=== PATIENT | male | born 1955 | race Caucasian/White ===

== ENCOUNTER 2020-04-03 08:20 | Emergency (ER) | payer OTHER ==
[~2020-04-03] VITALS: Ht 179.1 cm; Wt 71.0 kg
[2020-04-03 08:32] VITALS: BP 130/94
--- NOTE | 2020-04-03 08:39 | NUR ---
PATIENT AMBULATED TO BED 12.
--- NOTE | 2020-04-03 08:55 | NUR ---
C/O OF LOWER BACK PRESSURE PAIN 8/10 X5 DAYS. RASH TO LEFT FLANK, DOES NOT CROSS MIDDLE OF BACK. SKIN WARM, DRY AND INTACT. BED IN LOWEST POSITION, SIDE RAIL UP X1.
[2020-04-03 09:17] VITALS: BP 130/94
--- NOTE | 2020-04-03 09:17 | NUR ---
Patient discharged with v/s stable. Written and verbal after care instructions given and explained. Patient alert, oriented and verbalized understanding of instructions. Ambulatory with steady gait. All questions addressed prior to discharge. ID band removed. Patient advised to follow up with PMD. Rx of NAPROSEN, NORCO, AND ACYCLOVIR given. Patient educated on indication of medication including possible reaction and side effects. Opportunity to ask questions provided and answered.
== END 2020-04-03 09:17 | disposition home or self-care (01) ==
LOC: MED 08:20
DX: B02.9 Zoster without complications (principal); I10 Essential (primary) hypertension; F17.210 Nicotine dependence, cigarettes, uncomplicated; Z71.6 Tobacco abuse counseling
CPT/HCPCS: 99283

== ENCOUNTER 2021-06-16 08:15 | Day surgery (SDC) | payer OTHER, SELFPAY ==
[~2021-06-16] VITALS: Ht 165.1 cm; Wt 81.6 kg
[2021-06-16] MEDS ORDERED: LIDOCAINE 2% 100 MG/5 ML UJET TP ONE (09:11)
[2021-06-16] MEDS ORDERED: fentaNYL citrate 0.05 MG/ML VIAL ONE (09:11)
[2021-06-16] MEDS ORDERED: fentaNYL citrate 0.05 MG/ML VIAL IVP ONE (10:45)
== END 2021-06-16 11:15 | disposition home or self-care (01) ==
LOC: MDS 08:15 → MMU 08:15 → MDS 11:15
PROVIDERS: ATTEND Internal Medicine Gastroenterology
DX: Z12.11 Encounter for screening for malignant neoplasm of colon (principal); K57.30 Diverticulosis of large intestine without perforation or abscess without bleeding; I10 Essential (primary) hypertension; E78.00 Pure hypercholesterolemia, unspecified; Z79.82 Long term (current) use of aspirin; Z79.899 Other long term (current) drug therapy
CPT/HCPCS: 43235; 45378; 87426; J3010